=== PATIENT | male | born 1960 | race Caucasian/White ===

== ENCOUNTER 2025-04-22 01:29 | Emergency (ER) | payer OTHER ==
[~2025-04-22] VITALS: Ht 167.6 cm; Wt 83.3 kg
--- NOTE | 2025-04-22 01:54 | RADIOLOGY REPORT ---
CHEST RADIOGRAPH Indication: CP Technique: Single frontal view of the chest was obtained COMPARISON: None FINDINGS: Lines and Tubes: None Lungs: Clear Pleura: No effusion. No pneumothorax. Cardiomediastinal contours: Unremarkable Bones: Unremarkable IMPRESSION: 1. No acute disease.
[2025-04-22 02:17] LABS: CREATININE 0.85 MG/DL (0.60-1.10); PRO BRAIN NATRIURETIC PEPTIDE 37 PG/ML (0-125); TOTAL CARBON DIOXIDE 24.0 MMOL/L (24-32); eCRCL 80 ML/MIN; eGFR > 90 ML/MIN
--- NOTE | 2025-04-22 02:19 | Physician Documentation ---
History of Present Illness ~ Chief Complaint: Chest Pain Stated Complaint: CHEST PAIN Time Seen by MD: 02:19 Primary Medical Doctor: [facility] Mode of Arrival: EMS HPI 64-year-old male presenting with chest discomfort He tells me that a couple of weeks ago he had an episode of severe vertigo and ended up in an outside hospital emergency department. Since that time he has been having intermittent episodes of chest discomfort. He states this is a low level discomfort, mostly in the central chest but currently in the central lower chest. Tonight it started around 11:30 p.m. he states it is very mild. Nothing makes it better. He came to the ER because while he was at home he had an episode where he became very sweaty and lightheaded like he was going to faint. It did not really feel like vertigo. He denies any history of heart disease or heart rhythm problem. He does have a history of acid reflux occasionally. He denies any abdominal pain currently. No leg pain or swelling. No pleuritic chest pain. Medication Reconciliation Allergies: Coded Allergies: No Known Allergies (Unverified , 04/22/25) Review of Systems Constitutional: Denies: fever Respiratory: Denies: shortness of breath Cardiovascular: Reports: chest pain, diaphoresis, lightheadedness Gastrointestinal: Denies: abdominal pain Physical Exam Vital Signs: Temperature: 97.8, Source: Oral, Heart Rate: 85, Respiratory Rate: 12, BP: 124/89, Pulse Oximetry: 95, Weight: 83.300 Oxygen Flow Rate: 0 Physical Exam General: This is a pleasant and overall well-appearing middle-aged man sitting calmly in bed HEENT: Atraumatic, oropharynx is moist Heart: Regular rate and rhythm, no audible murmur, normal-appearing peripheral perfusion Lungs: Clear breath sounds bilateral, normal work of breathing, normal oxygen saturation on room air Abdomen: Soft, nondistended, nontender all quadrants including in the epigastric region Extremities: Warm and well-perfused, no edema or posterior calf tenderness Neuro: Alert and oriented Psychiatric: Calm and cooperative with exam Progress Results/Orders Results/Orders Orders - CASSIDY LINDSEY MD Chest,Single View (04/22/25 01:44) Monitor (04/22/25 01:30) Saline Lock (04/22/25 01:30) Oxygen (04/22/25 01:30) Electrocardiogram (04/22/25 01:30) Hs Troponin I W Calculations (04/22/25 04:30) Completed Orders - CASSIDY LINDSEY MD Chest,Single View (04/22/25 01:44) BMP (04/22/25 01:30) PBNP (04/22/25 01:30) Hs Troponin I W Calculations (04/22/25 01:30) Hs Troponin I W Calculations (04/22/25 03:30) Mag & Alum Hydrox/Simeth Susp (Maalox Or (04/22/25 02:50) Cbc/Diff (04/22/25 02:53) MG (04/22/25 01:40) Potassium Cl Sr Tablet (K-Dur Tablet) (04/22/25 03:41) Medications Received in ER Medications (Trade) Dose Ordered Sig/Saray Route PRN Reason Start Time Stop Time Status Last Admin Dose Admin (Maalox oral suspension) 30 ml ONCE ONCE PO 04/22/25 02:50 04/22/25 02:51 DC 04/22/25 03:00 30 ML (K-DUR tablet) 40 meq ONCE STAT PO 04/22/25 03:41 04/22/25 03:42 DC 04/22/25 03:45 40 MEQ Vital Signs 04/22/25 04/22/25 04/22/25 04/22/25 01:30 01:53 01:59 03:04 Temp 97.8 97.8 97.8 Pulse 89 85 74 Resp 18 12 13 B/P (MAP) 147/92 124/89 (101) 112/76 (88) Pulse Ox 96 95 96 O2 Flow Rate 0 0 0 04/22/25 05:35 Temp 97.8 Pulse 72 Resp 16 B/P (MAP) 116/74 Pulse Ox 98 Laboratory Tests Test 04/22/25 01:40 04/22/25 03:02 04/22/25 03:46 CBC Comment Sodium Level 137 Potassium Level 2.8 *L Chloride Level 99 Carbon Dioxide Level 24.0 Anion Gap 14 Blood Urea Nitrogen 10 Creatinine 0.85 Estimated GFR/1.73 m2 > 90 BUN/Creatinine Ratio 11.8 Glucose Level 124 H Calcium Level 9.1 Magnesium Level 1.9 Troponin I High Sensitivity 8 12 Pro-B-Type Natriuretic Peptide 37 Albumin 3.8 Chemistry Comments White Blood Count 11.1 H Red Blood Count 5.24 Hemoglobin 16.3 Hematocrit 46.4 Mean Corpuscular Volume 88.5 Mean Corpuscular Hemoglobin 31.2 H Mean Corpuscular Hemoglobin Concent 35.2 Red Cell Distribution Width 13.7 Platelet Count 227 Mean Platelet Volume 7.7 Neutrophils (%) (Auto) 62.9 Lymphocytes (%) (Auto) 22.6 Monocytes (%) (Auto) 12.8 H Eosinophils (%) (Auto) 1.2 Basophils (%) (Auto) 0.5 Neutrophils # (Auto) 7.0 Lymphocytes # (Auto) 2.5 Monocytes # (Auto) 1.4 H Eosinophils # (Auto) 0.1 Basophils # (Auto) 0.1 Troponin I High Sens Percent Delta 50 Troponin I Hi Sens Absolute Change 4 Heart Score: Heart Score Response (Comments) Value History Slightly Suspicious 0 EKG Repolarization Disturb 1 Age 45-64 1 Risk Factors 1 or 2 risk factors 1 Troponin Normal limit 0 Total 3 Medical Decision Making Differential Dx:Considerations: Include: angina, aortic dissection, chest wall pain, cholelithiasis, CHF, costochondritis, esophageal reflux/spasm, gastritis, pneumonia, pulmonary embolus Additional Information The patient presents with intermittent chest pain over the past couple of weeks. He had an episode tonight or lightheadedness and sweating. Currently he has minimal symptoms except for some mild chest discomfort. He was given Maalox, and his symptoms completely resolved. His workup otherwise shows hypokalemia and he was given oral potassium. Troponins are normal x2, and his symptoms do not seem likely to represent a cardiac cause. Given his complete resolution after Maalox, gastritis and esophagitis seems more likely. He will be discharged with a plan for omeprazole and other antacid treatments. He will follow up with his primary care doctor to discuss whether he needs further heart testing. Return precautions given. Departure Time of Disposition: 05:21 Disposition: 01 HOME / SELF CARE / HOMELESS Impression: Primary Impression: Gastritis Additional Impressions: Chest pain Hypokalemia Condition: Improved Discharge Instructions: Gastritis, Adult, Hypokalemia Referrals: NO PRIMARY CARE PROVIDER (PCP) Education Educated: Patient Educated regarding: diagnosis, treatment, need for follow up Signature Scribe Signature: na Attestation: CASSIDY Woodard MD Apr 22, 2025 02:19
[2025-04-22] MEDS: mag hydrox/Alum hydrox/simeth 30ml oral suspension PO ONE (03:00)
[2025-04-22 03:31] LABS: MEAN PLATELET VOLUME 7.7 FL (7.4-10.4); RED CELL DISTRIBUTION WIDTH 13.7 % (11.5-14.5)
[2025-04-22] MEDS: potassium Cl 20 mEq SR tablet PO STA (03:45)
[2025-04-22 05:35] VITALS: BP 116/74; PULSE 72; RESP 16; TEMP 97.8; O2SAT 98
--- NOTE | 2025-04-22 06:02 | ELECTROCARDIOGRAPH REPORT ---
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 Steven Lindsey Measurements Intervals [place] Rate: 88 P: -13 MA: 155 QRS: -37 QRSD: 107 T: 4 QT: 387 QTc: 469 Interpretive Statements Sinus rhythm Ventricular premature complex Left axis deviation Abnormal R-wave progression, late transition Electronically Signed On 04-24-2025 21:44:[address] Steven Lindsey Please click the below link to view image of tracing.
== END 2025-04-22 05:36 | disposition home or self-care (01) ==
LOC: ER 01:30
DX: K29.70 Gastritis, unspecified, without bleeding (principal); R07.9 Chest pain, unspecified; K21.9 Gastro-esophageal reflux disease without esophagitis; E87.6 Hypokalemia
CPT/HCPCS: 36415; 71045; 80048; 83735; 83880; 84484; 85025; 93005; 99285